=== PATIENT | male | born 1950 | race Caucasian/White ===

== ENCOUNTER 2017-01-18 18:37 | Outpatient (CLI) | payer MEDICARE, BC | END 2017-01-18 18:38 | disposition home or self-care (01) | DX: N30.90 Cystitis, unspecified without hematuria (principal) ==

== ENCOUNTER 2020-09-02 11:31 | Outpatient (CLI) | payer MEDICARE, BC | END 2020-09-02 11:32 | disposition home or self-care (01) | LOC: LAB.S 11:31 | PROVIDERS: ATTEND Urology | DX: N40.1 Benign prostatic hyperplasia with lower urinary tract symptoms (principal); N13.8 Other obstructive and reflux uropathy | CPT/HCPCS: 36415; 84153 ==

== ENCOUNTER 2020-10-17 13:45 | Outpatient (CLI) | payer MEDICARE, BC ==
[2020-10-17 20:20] LABS: BUN - BLOOD UREA NITROGEN 16 mg/dL (6-20); CALCIUM 9.9 mg/dL (8.5-10.3); CARBON DIOXIDE - CO2 23 mmol/L (21-32); CHLORIDE 103 mmol/L (101-111); CHOL/HDL RATIO 3.1 (<5.0); CHOLESTEROL 132 mg/dL; GLUCOSE 99 mg/dL (70-100); HDL CHOLESTEROL 42 mg/dL; LDL CHOLESTEROL,CALCULATED 44 mg/dL; SODIUM 140 mmol/L (135-145); VLDL CHOLESTEROL 46 mg/dL
[2020-10-17 20:26] LABS: HEMOGLOBIN A1c% 5.5 % (4.27-6.07)
== END 2020-10-17 13:46 | disposition home or self-care (01) ==
LOC: LAB.S 13:45
PROVIDERS: ATTEND Student in an Organized Health Care Education/Training Program
DX: R73.01 Impaired fasting glucose (principal); E78.00 Pure hypercholesterolemia, unspecified
CPT/HCPCS: 36415; 80048; 80061; 83036; 83721